=== PATIENT | male | born 1955 | race Caucasian/White ===

== ENCOUNTER → 2020-05-21 | Outpatient (CLI) | payer MEDICARE, MEDICAID ==
--- NOTE | 2020-05-21 16:33 | REP ---
INDICATION: CALF PAIN. COMPARISON: None. TECHNIQUE: Real-time sonographic evaluation of right Achilles tendon performed. FINDINGS: Soft tissue edema and swelling somewhat limits the exam. However the Achilles tendon appears contiguous with no evidence of focal defect or tear. No focal abnormality is seen of the tendon. There is no fluid collection. IMPRESSION: No definite sonographic evidence of Achilles tear. <Electronically signed by Akash Friend > 05/21/20 [id number]
== END ==
LOC: M RAD 13:09
DX: M79.605 Pain in left leg (principal)

== ENCOUNTER → 2023-02-23 | Outpatient (CLI) | payer MEDICARE, MEDICAID ==
[~2023-02-23] MED LIST: ATEN25TA; ATOR1TAB21; BASA100I; BENA-8; BENA1TAB24; FURO20TA2; HYDR50TAB; METF10004
== END ==
LOC: M SOG 08:02
PROVIDERS: ATTEND Orthopaedic Surgery Hand Surgery
DX: M19.041 Primary osteoarthritis, right hand (principal); M19.042 Primary osteoarthritis, left hand

== ENCOUNTER 2023-06-08 11:26 | Emergency (ER) | payer MEDICARE, MEDICAID ==
[~2023-06-08] VITALS: Ht 172.7 cm; Wt 106.0 kg
[2023-06-08 14:33] VITALS: BP 137/63; TEMP 98.7; O2SAT 99
[2023-06-08] MEDS ORDERED: predniSONE 20 MG TAB PO ONE (14:45)
[2023-06-08] MEDS ORDERED: methocarbamoL 750 MG TAB PO ONE (14:45)
[2023-06-08] MEDS ORDERED: METH-1165 PO (14:53)
[2023-06-08] MEDS ORDERED: PRED20TA PO (14:53)
== END 2023-06-08 15:01 | disposition home or self-care (01) ==
LOC: M ED 11:26
DX: M54.12 Radiculopathy, cervical region (principal); I25.2 Old myocardial infarction; E11.9 Type 2 diabetes mellitus without complications; I10 Essential (primary) hypertension; Z79.4 Long term (current) use of insulin; Z79.899 Other long term (current) drug therapy
CPT/HCPCS: 72125; 99283; J7512

== ENCOUNTER → 2023-09-27 | Outpatient (CLI) | payer MEDICARE, MEDICAID ==
[~2023-09-27] MED LIST changes: -ATEN25TA; +ATEN25TA PO; -ATOR1TAB21; +ATOR1TAB21 PO; -BASA100I; +BASA100I SQ; -BENA-8; +BENA-8 PO; -BENA1TAB24; +BENA1TAB24 PO; -FURO20TA2; +FURO20TA2 PO; -HYDR50TAB; +HYDR50TAB PO; -METF10004; +METF10004 PO; +METH-1165 PO; +PRED20TA PO
== END ==
LOC: M RAD 13:41
PROVIDERS: ATTEND Internal Medicine Medical Oncology
DX: N18.9 Chronic kidney disease, unspecified (principal)

== ENCOUNTER 2023-09-28 10:13 | Observation (INO) | payer MEDICARE, MEDICAID ==
[2023-09-28] VITALS (13 sets, daily range): BP systolic 121–158; BP diastolic 55–75; TEMP 97.1–99; O2SAT 98–100
[~2023-09-28] VITALS: Ht 175.3 cm; Wt 105.5 kg
[2023-09-28 11:36] LABS: MEAN CORPUSCULAR HEMOGLOBIN 21.7 pg (27.0-33.0); MEAN CORPUSCULAR HGB CONC 27.6 g/dl (32.0-36.5); MEAN CORPUSCULAR VOLUME 78.7 fl (80.0-96.0); PLATELET COUNT, AUTOMATED 202 10^3/uL (150-450); RED BLOOD COUNT 2.21 10^6/uL (4.30-6.10); WHITE BLOOD COUNT 4.5 10^3/uL (4.0-10.0)
[2023-09-28 11:40] LABS: HEMATOCRIT 17.4 % (42.0-52.0); HEMOGLOBIN 4.8 g/dl (13.5-17.5)
[2023-09-28 12:04] LABS: CALCIUM LEVEL 7.6 MG/DL (8.3-10.6); CREATININE FOR GFR 1.62 MG/DL (0.70-1.30); GLOMERULAR FILTRATION RATE 45.6 (>49); POTASSIUM SERUM 4.7 MMOL/L (3.5-5.1)
[2023-09-28] MEDS ORDERED: HOME MED LIST COMPLETE! XX SCH (13:00)
[2023-09-28] MEDS: HumuLIN R (REGULAR) INSULIN (NovoLIN R) **100U/ML** PER UNIT IV ONE (13:20)
[2023-09-28] MEDS ORDERED: MAALOX 30 ML SUSP *UDC PO PRN (13:45)
[2023-09-28] MEDS ORDERED: MOM 30ML SUSPENSION UDC PO PRN (13:45)
[2023-09-28] MEDS ORDERED: ACETAMINOPHEN TAB 650MG DOSE (2X325MG) PO PRN (13:45)
[2023-09-28] MEDS ORDERED: NS 1,000 ML IV ONE (15:25)
[2023-09-28] MEDS ORDERED: GLUCAGON INJ 1MG VIAL SC PRN (15:25)
[2023-09-28] MEDS ORDERED: DEXTROSE 50% 50ML SYRINGE IV PRN (15:25)
[2023-09-28] MEDS ORDERED: GLUCOSE 4GM CHEW TABLET PO PRN (15:25)
[2023-09-28] MEDS ORDERED: HumuLIN R (REGULAR) INSULIN (NovoLIN R) **100U/ML** PER UNIT IV STA ×2 (17:09→17:58)
[2023-09-28] MEDS: INSULIN LISPRO (NovoLOG) PER UNIT SC SCH ×2 (17:56→20:49)
[2023-09-28] MEDS: SODIUM CHLORIDE NASAL 0.65% SPRAY BTL (OCEAN) PRN (22:09)
[2023-09-28 22:37] LABS: MEAN CORPUSCULAR HEMOGLOBIN 24.2 pg (27.0-33.0); MEAN CORPUSCULAR HGB CONC 30.2 g/dl (32.0-36.5); PLATELET COUNT, AUTOMATED 180 10^3/uL (150-450); WHITE BLOOD COUNT 4.2 10^3/uL (4.0-10.0)
[2023-09-28 23:01] LABS: HEMATOCRIT 19.2 % (42.0-52.0); HEMOGLOBIN 5.8 g/dl (13.5-17.5)
[2023-09-29] VITALS (16 sets, daily range): BP systolic 122–191; BP diastolic 56–74; TEMP 97–98.9; O2SAT 94–99
[2023-09-29 05:59] LABS: IONIZED CALCIUM 4.5 MG/DL (4.5-5.3)
[2023-09-29 06:07] LABS: HEMATOCRIT 24.7 % (42.0-52.0); HEMOGLOBIN 7.7 g/dl (13.5-17.5); MEAN CORPUSCULAR HEMOGLOBIN 25.2 pg (27.0-33.0); MEAN CORPUSCULAR HGB CONC 31.2 g/dl (32.0-36.5); MEAN CORPUSCULAR VOLUME 80.7 fl (80.0-96.0); PLATELET COUNT, AUTOMATED 184 10^3/uL (150-450); RED BLOOD COUNT 3.06 10^6/uL (4.30-6.10); WHITE BLOOD COUNT 4.6 10^3/uL (4.0-10.0)
[2023-09-29 06:30] LABS: CALCIUM LEVEL 7.5 MG/DL (8.3-10.6); CREATININE FOR GFR 1.33 MG/DL (0.70-1.30); GLOMERULAR FILTRATION RATE 57.3 (>49); MAGNESIUM LEVEL 1.6 MG/DL (1.8-2.4); POTASSIUM SERUM 4.6 MMOL/L (3.5-5.1)
[2023-09-29 07:00] LABS: ANISOCYTOSIS 1+; ATYPICAL LYMPH 3 % (0-5); BASOPHILS 2 % (0-1); EOSINOPHILS 1 % (0-3); LYMPHOCYTES 19 % (16-44); MONOCYTES 9 % (0-5); NEUTROPHILS 66 % (28-66); PLATELET ESTIMATE NORMAL (NORMAL); POIKILOCYTOSIS 1+
[2023-09-29 07:01] LABS: OVALOCYTES 1+
[2023-09-29] MEDS: MAGNESIUM OXIDE 400MG TAB (MAG-OX) PO ONE (09:12)
[2023-09-29] MEDS: FUROSEMIDE 20 MG TAB PO SCH (09:12)
[2023-09-29] MEDS: **hydrALAZINE HCL** 25 MG TAB PO SCH (09:16)
[2023-09-29] MEDS: MAG SULF 1GM/100ML (MAG RUN) 1 GM in IV 1 EA IV ONE (09:31)
[2023-09-29 11:22] LABS: HEMATOCRIT 30.9 % (42.0-52.0); HEMOGLOBIN 9.8 g/dl (13.5-17.5)
[2023-09-29] MEDS ORDERED: EQ S0.65 NARES (12:21)
[2023-09-29 12:52] LABS: HEMOGLOBIN A1c 6.3 % (4.0-6.0)
[2023-09-29] MEDS ORDERED: ATORVASTATIN 20 MG TAB PO SCH (21:00)
== END 2023-09-29 13:48 | disposition home or self-care (01) ==
LOC: M ED 10:13 → M ED INP 13:45 → ENRESERV 14:10 → M PCU 15:06
PROVIDERS: ADMIT Student in an Organized Health Care Education/Training Program; ATTEND Student in an Organized Health Care Education/Training Program
DX: D50.0 Iron deficiency anemia secondary to blood loss (chronic) (principal); I78.0 Hereditary hemorrhagic telangiectasia; R04.0 Epistaxis; E83.42 Hypomagnesemia; E11.65 Type 2 diabetes mellitus with hyperglycemia; N18.32 Chronic kidney disease, stage 3b; E11.22 Type 2 diabetes mellitus with diabetic chronic kidney disease; I13.0 Hypertensive heart and chronic kidney disease with heart failure and stage 1 through stage 4 chronic kidney disease, or unspecified chronic kidney disease; E78.5 Hyperlipidemia, unspecified; I50.9 Heart failure, unspecified; M06.9 Rheumatoid arthritis, unspecified; I25.2 Old myocardial infarction; Z79.899 Other long term (current) drug therapy; Z79.84 Long term (current) use of oral hypoglycemic drugs; Z79.4 Long term (current) use of insulin; Z83.2 Family history of diseases of the blood and blood-forming organs and certain disorders involving the immune mechanism
CPT/HCPCS: 36415; 36430; 71045; 80048; 82330; 83036; 83735; 85014; 85018; 85025; 85027; 86850; 86900; 86901; 86920; 93005; 96365; 96375; 97161; 97530; 99285; G0378; J1815; J3475; P9016

== ENCOUNTER → 2023-10-23 | Outpatient (CLI) | payer MEDICARE, MEDICAID ==
[~2023-10-23] MED LIST changes: +EQ S0.65 NARES
== END ==
LOC: M RAD 15:24
PROVIDERS: ATTEND Otolaryngology
DX: R04.0 Epistaxis (principal)

== ENCOUNTER 2024-10-17 06:30 | Day surgery (SDC) | payer MEDICARE, MEDICAID ==
[~2024-10-17] VITALS: Ht 172.7 cm; Wt 93.3 kg
[~2024-10-17 06:30] MED LIST changes: +ALLO100T PO; +AMLO1TAB24 PO; +FEBU40TA6 PO; +FURO40TA2 PO; +MYCO500T PO; +PANT40TA29 PO; +PHENYLEPHRINE 10% OPHTH SOL 5ML OD PRN; +REFR1DRO8
[2024-10-17] MEDS ORDERED: MIDAZOLAM INJ 2MG/2ML VIAL As Ordered ONE (07:09)
[2024-10-17] MEDS ORDERED: fentaNYL 100 MCG/2 ML INJECTION As Ordered ONE (07:09)
[2024-10-17] MEDS: OFLOXACIN 0.3 % (OCUFLOX) OPTH SOL 5ML OD ONE (07:34)
[2024-10-17] MEDS: CYCLOPENTOLATE 1% OPHTH SOLN 2ML BTL OD SCH (07:34)
[2024-10-17] MEDS: LIDOCAINE 3.5 % 1ML OPHTH TOPICAL GEL OU ONE (07:34)
[2024-10-17] MEDS: PHENYLEPHRINE 2.5% OPHTH SOL 2ML OD SCH (07:34)
[2024-10-17] MEDS: TROPICAMIDE 1% OPHTH SOLN 15ML OD SCH (07:34)
[2024-10-17] MEDS: INSULIN LISPRO (NovoLOG) PER UNIT SC PRN (07:55)
[2024-10-17] MEDS: BSS IRRIG/VANCO(10MG)/TOBRA(5MG)/EPINEPH(1:1000-0.5CC)500ML BAG-ORONLY As Ordered ONE (08:16)
[2024-10-17] MEDS: CEFUROXIME 1MG/0.1ML INTRACAMERAL INJ As Ordered ONE (08:16)
[2024-10-17] MEDS: LIDOCAINE 1% SDV 5ML VIAL As Ordered ONE (08:16)
[2024-10-17 08:29] VITALS: BP 162/71; TEMP 98; O2SAT 100
== END 2024-10-17 09:03 | disposition home or self-care (01) ==
LOC: M SDC 06:30
PROVIDERS: ATTEND Ophthalmology
DX: E11.36 Type 2 diabetes mellitus with diabetic cataract (principal); H25.11 Age-related nuclear cataract, right eye; I12.9 Hypertensive chronic kidney disease with stage 1 through stage 4 chronic kidney disease, or unspecified chronic kidney disease; I50.9 Heart failure, unspecified; I78.0 Hereditary hemorrhagic telangiectasia; I42.9 Cardiomyopathy, unspecified; E11.40 Type 2 diabetes mellitus with diabetic neuropathy, unspecified; E78.00 Pure hypercholesterolemia, unspecified; G47.30 Sleep apnea, unspecified; I25.2 Old myocardial infarction; Z79.84 Long term (current) use of oral hypoglycemic drugs; Z79.899 Other long term (current) drug therapy; Z99.3 Dependence on wheelchair; M10.9 Gout, unspecified; Z90.89 Acquired absence of other organs
CPT/HCPCS: 66984; J0697; J1815; J2250; J3010; V2632

== ENCOUNTER → 2024-11-01 | Outpatient (CLI) | payer MEDICARE, MEDICAID ==
[~2024-11-01] MED LIST changes: -PHENYLEPHRINE 10% OPHTH SOL 5ML OD PRN; +PREDOPD OD
== END ==
LOC: M SOG 13:03
PROVIDERS: ATTEND Orthopaedic Surgery
DX: M17.12 Unilateral primary osteoarthritis, left knee (principal)

== ENCOUNTER 2024-11-07 11:35 | Day surgery (SDC) | payer MEDICARE, MEDICAID ==
[~2024-11-07] VITALS: Ht 172.7 cm; Wt 94.2 kg
[~2024-11-07 11:35] MED LIST changes: +PHENYLEPHRINE 10% OPHTH SOL 5ML OS PRN
[2024-11-07] MEDS: OFLOXACIN 0.3 % (OCUFLOX) OPTH SOL 5ML OS ONE (12:34)
[2024-11-07] MEDS: LIDOCAINE 3.5 % 1ML OPHTH TOPICAL GEL OU ONE (12:35)
[2024-11-07] MEDS: TROPICAMIDE 1% OPHTH SOLN 15ML OS SCH (12:35)
[2024-11-07] MEDS: PHENYLEPHRINE 2.5% OPHTH SOL 2ML OS SCH (12:35)
[2024-11-07] MEDS: CYCLOPENTOLATE 1% OPHTH SOLN 2ML BTL OS SCH (12:35)
[2024-11-07] MEDS ORDERED: INSULIN LISPRO (NovoLOG) PER UNIT SC PRN (12:45)
[2024-11-07] MEDS ORDERED: fentaNYL 100 MCG/2 ML INJECTION As Ordered ONE (13:25)
[2024-11-07] MEDS ORDERED: MIDAZOLAM INJ 2MG/2ML VIAL As Ordered ONE (13:25)
[2024-11-07] MEDS: CEFUROXIME 1MG/0.1ML INTRACAMERAL INJ As Ordered ONE (13:47)
[2024-11-07] MEDS: LIDOCAINE 1% SDV 5ML VIAL As Ordered ONE (13:47)
[2024-11-07] MEDS: BSS IRRIG/VANCO(10MG)/TOBRA(5MG)/EPINEPH(1:1000-0.5CC)500ML BAG-ORONLY As Ordered ONE (13:48)
[2024-11-07 14:05] VITALS: BP 179/82; TEMP 98; O2SAT 100
== END 2024-11-07 14:32 | disposition home or self-care (01) ==
LOC: M SDC 11:35
PROVIDERS: ATTEND Ophthalmology
DX: E11.36 Type 2 diabetes mellitus with diabetic cataract (principal); H25.12 Age-related nuclear cataract, left eye; I25.2 Old myocardial infarction; I11.0 Hypertensive heart disease with heart failure; I50.9 Heart failure, unspecified; E11.40 Type 2 diabetes mellitus with diabetic neuropathy, unspecified; I78.0 Hereditary hemorrhagic telangiectasia; E78.00 Pure hypercholesterolemia, unspecified; M10.9 Gout, unspecified; Z79.899 Other long term (current) drug therapy; Z79.84 Long term (current) use of oral hypoglycemic drugs; Z90.89 Acquired absence of other organs
CPT/HCPCS: 66984; J0697; J2250; J3010; V2632

== ENCOUNTER → 2025-06-11 | Outpatient (REF) ==
[~2025-06-11] MED LIST changes: -PHENYLEPHRINE 10% OPHTH SOL 5ML OS PRN
== END ==
LOC: M LABCFH 14:03
DX: Z01.89 Encounter for other specified special examinations (principal)